=== PATIENT | female | born 1965 | race Caucasian/White ===

== ENCOUNTER 2016-05-26 06:53 | Day surgery (SDC) | payer OTHER ==
[~2016-05-26] VITALS: Ht 157.5 cm; Wt 61.8 kg
[~2016-05-26 06:53] MED LIST: ALBU8.5H5 INH; DOCU-144 PO; HYDR-3498 PO; IBUP800T25 PO; NITR-58 PO; PHEN-537 PO; PRED15SO PO; TRAM50TA2 PO; VALA100057 PO
[2016-05-26] MEDS ORDERED: SINGULAR (08:09)
[2016-05-26 08:12] VITALS: Ht 157.5 cm; Wt 61.8 kg
[2016-05-26 08:58] VITALS: BP 122/60; PULSE 57; RESP 12
[2016-05-26] MEDS ORDERED: FENTAnyl 50 MCG/ML VIAL ONE (09:22)
[2016-05-26] MEDS ORDERED: MIDAZOLAM 1 MG/ML 2 ML INJ ONE ×2 (09:23)
[2016-05-26 10:05] VITALS: BP 99/58; PULSE 56; RESP 18
--- NOTE | 2016-05-26 10:40 | GILP ---
DATE OF PROCEDURE: NAME OF PROCEDURE: Colonoscopy. SURGEON: Radha Reddy MD PREOPERATIVE DIAGNOSIS: Screening colonoscopy. POSTOPERATIVE DIAGNOSES: 1. Colonoscopy all the way to the cecum. 2. Internal hemorrhoids. 3. No colon neoplasm was identified. INDICATION FOR THE PROCEDURE: Ms. Demi Medrano is a 50-year-old female patient who was scheduled fo r screening colonoscopy. The procedure and possible complications were well explained to the patient. The patient understood and consented to the procedure. DESCRIPTION OF PROCEDURE: Under the influence of fentanyl and Versed, the colonoscope was carefully introduced in the rectum and under direct vision it was advanced all the way to the cecum. FINDINGS: The patient had internal hemorrhoids. No colon neoplasm was identified. She tolerated the procedure very well and there was no complication from the procedure. At the end of the procedure, she was awake with stable vital signs and she was discharged home to the care of h er family. IMPRESSION: 1. Colonoscopy all the way to the cecum. 2. Internal hemorrhoids. 3. No colon neoplasm was identified. PLAN: Next screening colonoscopy in 10 years. Dictated By: RADHA RIVERO/THERESA Conf#: [id number] DID#: [id number]
== END 2016-05-26 19:02 | disposition home or self-care (01) ==
LOC: GIL 06:53
PROVIDERS: ATTEND Internal Medicine Gastroenterology
DX: Z12.11 Encounter for screening for malignant neoplasm of colon (principal); K64.8 Other hemorrhoids
CPT/HCPCS: 45378; J2250; J3010; Z7610

== ENCOUNTER 2016-10-30 11:18 | Emergency (ER) | payer OTHER ==
[~2016-10-30] VITALS: Ht 162.6 cm; Wt 60.9 kg
[2016-10-30 11:18] VITALS: Ht 162.6 cm; Wt 60.9 kg
[~2016-10-30 11:18] MED LIST changes: -DOCU-144 PO; -HYDR-3498 PO; -IBUP800T25 PO; -NITR-58 PO; -PHEN-537 PO; -PRED15SO PO; +SINGULAR; -TRAM50TA2 PO
--- NOTE | 2016-10-30 12:13 | ERA ---
ER Documentation Chief Complaint Date/Time DATE: 10/30/16 TIME: 12:12 Chief Complaint Fainted HPI The patient is a 51-year-old female, presenting from the vendor specialist's office because she fainted during the blood draw. She went to see the vendor specialist today because she fainted 2 months ago. She has history of anxiety disorder, she is having a lot of stress in her life at this time. She denies tongue bite , fecal/urinary incontinence. She denies any neck pain, chest pain with exertion/vomiting/diaphoresis. She denies abdominal pain, vomiting, dysuria, diarrhea. She does not smoke nor drink. She is currently taking medication for her shingle that recurred about a week ago Past medical history: Asthma, anxiety Past surgical history: Cholecystectomy ROS All systems reviewed and are negative except as per history of present illness. Medications Home Meds Active Scripts Valacyclovir Hcl* (Valtrex*) 1,000 Mg Tablet, 1000 MG PO TID for 7 Days, TAB Prov:HAYDEE MENDIOLA NP 04/10/15 Albuterol Sulfate* (Albuterol Sulfate* HFA) 8.5 Gm Hfa.aer.ad, 1-2 PUFF INH Q4 Y for SHORTNESS OF BREATH, #1 EA 0 Refills Prov:LATASHA BERG PA-C 02/07/15 Reported Medications [Singular] No Conflict Check 05/26/16 Allergies Allergies: Coded Allergies: No Known Allergy (Unverified , 08/14/14) PMhx/Soc History of Surgery: Yes (CHOLECYSECTOMY) Anesthesia Reaction: No Hx Neurological Disorder: No Hx Respiratory Disorders: Yes (ASTHMA) Hx Cardiac Disorders: No Hx Psychiatric Problems: No Hx Miscellaneous Medical Probl: Yes (HSV) Hx Alcohol Use: No Hx Substance Use: No Hx Tobacco Use: No Physical Exam Vitals Vital Signs Date Time Temp Pulse Resp B/P Pulse Ox O2 Delivery O2 Flow Rate FiO2 10/30/16 15:02 66 16 100/67 100 Room Air 10/30/16 11:18 98.1 61 22 123/62 100 10/30/16 11:18 61 22 123/62 100 Room Air Physical Exam Const: No acute distress. Head: Atraumatic. Eyes: Normal Conjunctiva. ENT: Normal External Ears, Nose and Mouth. Neck: Full range of motion. No meningismus. Resp: Clear to auscultation bilaterally. Cardio: Regular rate and rhythm. Abd: Soft, non distended, normal bowel sounds, non tender. Skin: No petechiae or rashes. Back: No midline or flank tenderness. Ext: No cyanosis, or edema. Neur: Awake and alert. No focal deficit Psych: Normal Mood and Affect. Result Diagram: 10/30/16 1120 10/30/16 1120 Results 24 hrs Laboratory Tests Test 10/30/16 11:20 White Blood Count 7.010^3/ul Red Blood Count 4.8910^6/ul Hemoglobin 15.5g/dl Hematocrit 43.8% Mean Corpuscular Volume 89.6fl Mean Corpuscular Hemoglobin 31.7pg Mean Corpuscular Hemoglobin Concent 35.4g/dl Red Cell Distribution Width 12.0% Platelet Count 45666^3/UL Mean Platelet Volume 10.3fl Neutrophils % 61.5% Lymphocytes % 28.9% Monocytes % 7.4% Eosinophils % 1.7% Basophils % 0.4% Nucleated Red Blood Cells % 0.0/100WBC Neutrophils # 4.310^3/ul Lymphocytes # 2.010^3/ul Monocytes # 0.510^3/ul Eosinophils # 0.110^3/ul Basophils # 0.010^3/ul Nucleated Red Blood Cells # 0.010^3/ul Sodium Level 138mmol/L Potassium Level 4.2mmol/L Chloride Level 107mmol/L Carbon Dioxide Level 25mmol/L Anion Gap 10 Blood Urea Nitrogen 13mg/dl Creatinine 0.72mg/dl Glucose Level 84mg/dl Calcium Level 9.9mg/dl Troponin I < 0.012ng/ml Procedures/[place] [id number] Radiology Main Line: [phone] DIAGNOSTIC IMAGING REPORT Patient: DEEPAK CEE : 1965 Age: 51 Sex: F MR #: [id number] DOS: 10/30/16 1231 Ordering MD: FIDELIA COX MD Location: E/R Room/Bed: PROCEDURE: XR Chest. CLINICAL INDICATION: chest pain, syncope TECHNIQUE: Single frontal view of the chest was obtained COMPARISON: CR CHEST 08/26/2015 FINDINGS: The heart and mediastinum are within normal limits. There is elevation of the right diaphragm. The lungs are clear. There is no pleural effusion or pneumothorax. RPTAT: AA IMPRESSION: No acute disease. .Yogi Díaz MD, MD Date Time Electronically viewed and signed by .Yogi Díaz MD, MD on 10/30/2016 13: 01 .S/ CC: FIDELIA COX MD [place] [id number] Radiology Main Line: [phone] DIAGNOSTIC IMAGING REPORT Patient: DEEPAK CEE : 1965 Age: 51 Sex: F MR #: [id number] DOS: 10/30/16 1231 Ordering MD: FIDELIA COX MD Location: E/R Room/Bed: PROCEDURE: CT Brain without contrast. CLINICAL INDICATION: Patient experiencing syncope. TECHNIQUE: A CT of the brain was performed on a GE [employer] 64-slice CT scanner utilizing axial imaging from the skull base through the vertex without IV contrast. Multiplanar reformatted images were made. Images were reviewed on a PACS workstation. The CTDIvol is 44.88 mGy and the DLP is 630.2 mGycm. One or the following dose reduction techniques were used: -Automated exposure control. -Adjustment of the mA and/or KV according to patient's size. -Use of iterative reconstruction technique. COMPARISON: None FINDINGS: There is no intracranial hemorrhage, mass effect, or midline shift. No extra- axial fluid collection is seen. The ventricles and sulci are normal in size and configuration. The density of the brain is normal, and the dejesus white matter differentiation appears well-preserved. The visualized paranasal sinuses and osseous structures are grossly unremarkable. IMPRESSION: 1. No acute intracranial process identified. RPTAT: AACC Physician Elaina Date Time Electronically viewed and signed by Home Lui Physician on 10/30/2016 13: 54 JH/ CC: FIDELIA COX MD EKG: Read by emergency physician Rate/Rhythm: Normal Sinus Rhythm 61 beats/min QRS, ST, T-waves: No ST elevation, no T inversion Impression: Normal EKG MEDICAL MAKING DECISION: Patient is a 51-year-old female, presenting with acute syncope during blood draw, most likely vasovagal syncope. She remains well in the emergency department and is stable for outpatient follow-up. The differential diagnoses considered include but are not limited to bradyarrhythmia, tachyarrhythmias, aortic outflow obstruction, neurogenic including subarachnoid hemorrhage, orthostatic hypotension and all of its causes , hypoglycemia, dysautonomia, medications. Departure Diagnosis: Primary Impression: Syncope Condition: Good Comments I discussed the findings with the patient. I advised the patient to follow-up with the primary physician in about 1-2 days, sooner if needed and return if any concern. FIDELIA COX MD Oct 30, 2016 12:13
--- NOTE | 2016-10-30 13:01 | RADRPT ---
PROCEDURE: XR Chest. CLINICAL INDICATION: chest pain, syncope TECHNIQUE: Single frontal view of the chest was obtained COMPARISON: CR CHEST 08/26/2015 FINDINGS: The heart and mediastinum are within normal limits. There is elevation of the right diaphragm. The lungs are clear. There is no pleural effusion or pneumothorax. RPTAT: AA IMPRESSION: No acute disease. .Yogi Díaz MD, MD Date Time Electronically viewed and signed by .Yogi Díaz MD, on 10/30/2016 13:01 .S/
[2016-10-30 13:16] LABS: BASOPHILS % 0.4 % (0.0-2.0); EOSINOPHILS # 0.1 10^3/ul (0.0-0.5); EOSINOPHILS % 1.7 % (0.0-7.0); HEMATOCRIT 43.8 % (37.0-47.0); HEMOGLOBIN 15.5 g/dl (12.0-16.0); LYMPHOCYTES % 28.9 % (15.0-51.0); MEAN CORPUSCULAR HEMOGLOBIN 31.7 pg (29.0-33.0); MEAN CORPUSCULAR HGB CONC 35.4 g/dl (32.0-37.0); MEAN CORPUSCULAR VOLUME 89.6 fl (82.0-101.0); MEAN PLATELET VOLUME 10.3 fl (7.4-10.4); MONOCYTE # 0.5 10^3/ul (0.3-0.9); MONOCYTES % 7.4 % (0.0-11.0); NEUTROPHIL # 4.3 10^3/ul (1.6-7.5); NEUTROPHILS % 61.5 % (39.0-77.0); PLATELET COUNT 315 10^3/UL (140-415); RED BLOOD COUNT 4.89 10^6/ul (4.20-5.40)
[2016-10-30 13:37] LABS: ANION GAP 10 (8-16); BLOOD UREA NITROGEN 13 mg/dl (7-20); CALCIUM 9.9 mg/dl (8.4-10.2); CARBON DIOXIDE 25 mmol/L (21-31); CHLORIDE 107 mmol/L (97-110); CREATININE 0.72 mg/dl (0.44-1.00); GLUCOSE 84 mg/dl (70-220); POTASSIUM 4.2 mmol/L (3.5-5.1); SODIUM 138 mmol/L (135-144)
[2016-10-30 13:51] LABS: TROPONIN-I < 0.012 ng/ml (0.00-0.12)
--- NOTE | 2016-10-30 13:54 | RADRPT ---
PROCEDURE: CT Brain without contrast. CLINICAL INDICATION: Patient experiencing syncope. TECHNIQUE: A CT of the brain was performed on a GE [employer] 64-slice CT scanner utilizing axial imaging from the skull base through the vertex without IV contrast. Multiplanar reformatted images were made. Images were reviewed on a PACS workstation. The CTDIvol is 44.88 mGy and the DLP is 630 .2 mGycm. One or the following dose reduction techniques were used: -Automated exposure control. -Adjustment of the mA and/or KV according to patient's size. -Use of iterative reconstruction technique. COMPARISON: None FINDINGS: There is no intracranial hemorrhage, mass effect, or midline shift. No extra-axial fluid collection is seen. The ventricles and sulci are normal in size and configuration. The density of the brain is normal, and the dejesus white matter differentiation appears well-preserved. The visualized paranasal sinuses and osseous structures are grossly unremarkable. IMPRESSION: 1. No acute intracranial process identified. RPTAT: AACC Physician Elaina Date Time Electronically viewed and signed by Physician Elaina on 10/30/2016 13:54 /
[2016-10-30 15:02] VITALS: BP 100/67; PULSE 66; RESP 16
== END 2016-10-30 15:31 | disposition home or self-care (01) ==
LOC: E/R 11:46
DX: R55 Syncope and collapse (principal); J45.909 Unspecified asthma, uncomplicated
CPT/HCPCS: 36415; 70450; 71010; 80048; 84484; 85025; 93005; Z7502; Z7610

== ENCOUNTER 2018-04-04 19:18 | Emergency (ER) | payer OTHER ==
[~2018-04-04] VITALS: Ht 157.5 cm; Wt 65.1 kg
[2018-04-04 19:28] VITALS: Ht 157.5 cm; Wt 65.1 kg
[2018-04-04] MEDS ORDERED: ALBUTEROL 0.083% (NEB) 2.5 MG/3 ML AMP HHN STA (23:45)
--- NOTE | 2018-04-04 23:50 | ERD ---
ER Documentation Chief Complaint Chief Complaint ASTHMA; SOB [id number] HPI This is a 52-year-old female who presents emergency department with complaints of cough and shortness of breath for about a week. Stated that she went to her primary care physician couple of days ago and was prescribed with azithromycin. Stated that she has still 1 dose of azithromycin. LMP: Unknown. . Denies headache, head injury, loss of consciousness, dizziness, neck pain, neck stiffness, throat pain, difficulty swallowing, difficulty breathing lying flat, shoulder pain, chest pain, back pain, abdominal pain, nausea, vomiting, constipation, diarrhea, urinary symptoms, or possibility being , loss of bowel and bladder control, trauma, injury, falls, difficulty walking due to pain, numbness or tingling sensation, calf pain, recent travel, recent major surgery in the last 3 weeks, calf pain, recent long travel, recent exposure to any illness, recent antibiotic use in the last 3 months, fever, chills, seizures. Past medical history: Asthma. Medication: Azithromycin. Surgical history: Social: Denies smoking, use of alcoholic beverages, use of illegal drugs. ROS All systems reviewed and are negative except as per history of present illness. Medications Home Meds Active Scripts Benzonatate* (Tessalon Perle*) 100 Mg Capsule, 100 MG PO Q8H PRN for COUGH, #15 CAP Prov:MITUL TORRSE 04/04/18 Albuterol Sulfate* (Albuterol Sulfate* Neb) 0.083%-3 Ml Neb, 2.5 MG NEB Q4 PRN for SHORTNESS OF BREATH, #30 EA Prov:MITUL TORERS 04/04/18 Albuterol Sulfate* (Ventolin HFA*) 18 Gm Hfa.aer.ad, 2 PUFF INHALATION Q4H PRN for WHEEZING, #1 INHALER Prov:MITUL TORRES 04/04/18 Prednisone* (Prednisone*) 20 Mg Tab, 40 MG PO DAILY for 4 Days, TAB Prov:MITUL TORRES 04/04/18 Amoxicillin/Potassium Clav (Amox-Clav 875-125 mg Tablet) 875-125 mg Tab, 1 TAB PO BID for 10 Days, #20 TAB Prov:MITUL TORRES 04/04/18 Valacyclovir Hcl* (Valtrex*) 1,000 Mg Tablet, 1000 MG PO TID for 7 Days, TAB Prov:HAYDEE MENDIOLA [employer] 04/10/15 Albuterol Sulfate* (Albuterol Sulfate* HFA) 8.5 Gm Hfa.aer.ad, 1-2 PUFF INH Q4 PRN for SHORTNESS OF BREATH, #1 EA 0 Refills Prov:LATASHA BERG PA-C 02/07/15 Reported Medications [Singular] No Conflict Check 05/26/16 Allergies Allergies: Coded Allergies: No Known Allergy (Unverified , 08/14/14) PMhx/Soc History of Surgery: Yes (CHOLECYSECTOMY, hysterectomy) Anesthesia Reaction: No Hx Neurological Disorder: No Hx Respiratory Disorders: Yes (ASTHMA) Hx Cardiac Disorders: Yes (HTN) Hx Psychiatric Problems: No Hx Miscellaneous Medical Probl: Yes (HSV) Hx Alcohol Use: No Hx Substance Use: No Hx Tobacco Use: No Smoking Status: Never smoker Physical Exam Vitals Vital Signs Date Temp Pulse Resp B/P (MAP) Pulse Ox O2 O2 Flow FiO2 Time Delivery Rate 04/05/18 58 20 100/58 100 Room Air 00:50 (72) 04/05/18 83 20 97 21 00:10 04/04/18 98.2 74 18 152/69 99 19:28 (96) Physical Exam Const: No acute distress Head: Atraumatic Eyes: Normal Conjunctiva ENT: Normal External Ears, Nose and Mouth. Bilateral ears: TMs are mildly erythematous. No bleeding. No discharge with no mastoid tenderness. No hearing loss. Nose: There is frontal and maxillary sinus tenderness palpation. Throat: Uvula is in midline and nondisplaced. Tonsils are +1 bilaterally with mild redness but no exudates. Tolerating secretions. Patent airway. No tripoding. Speaks full and clear sentences. Neck: Full range of motion. No meningismus. No nuchal rigidity. No signs of meningeal irritation. Resp: Mild wheezing bilaterally. No accessory muscle use in breathing. Cardio: Regular rate and rhythm, no murmurs Abd: Soft, non tender, non distended. Normal bowel sounds Skin: No petechiae or rashes. Color appears normal for ethnicity. No skin tenting. No signs of dehydration. Back: No midline or flank tenderness Ext: No cyanosis, or edema Neur: Awake and alert. No neurological deficit. Psych: Normal Mood and Affect Results 24 hrs Current Medications Medications Dose Sig/Terrie Start Time Status Last (Trade) Ordered Route PRN Stop Time Admin Dose Reason Admin 10 mg ONCE ONCE 04/05/18 DC 04/05/18 Dexamethasone IM 00:00 00:14 (Decadron) 04/05/18 00:01 Albuterol 5 mg ONCE STAT 04/04/18 DC 04/05/18 (Proventil HHN 23:45 00:09 0.083% (Neb)) 04/04/18 23:47 Ipratropium 0.5 mg ONCE ONCE 04/05/18 DC 04/05/18 [place] [facility] 00:00 00:09 (Atrovent 04/05/18 00:01 0.02% (Neb)) Procedures/MDM Diagnostic tests: Clinical exam. Treatment: Dexamethasone IM. Albuterol and Atrovent breathing treatment. Re-evaluation: Respirations even and unlabored. No retractions noted. Lung sounds are clear to auscultation. Speaks full and clear sentences. Stated that she feels much better at this time and that she is ready to go home. Differential diagnosis I have low suspicion for sepsis, meningitis, peritonsillar abscess, mastoiditis, airway obstruction, status asthmaticus, bronchospasm, severe dehydration. Final diagnosis: Asthma exacerbation. Asthmatic bronchitis. Sinusitis. Prescription: Augmentin. Prednisone. Ventolin pro-air. Albuterol nebulized for admission. Follow-up with PCP in the next 24-48 hours. Come back here in the emergency department for any new symptoms or any worsening symptoms. All questions and concerns were answered. Patient and family members verbalized understanding and agreed with plan of care. Hemodynamically stable on discharge. Departure Diagnosis: Primary Impression: Asthma with acute exacerbation Additional Impressions: Sinusitis Asthmatic bronchitis Condition: Stable Additional Instructions: Follow-up with PCP in the next 24-48 hours. Come back here in the emergency department for any new symptoms or any worsening symptoms. MITUL TORRES Apr 04, 2018 23:50
[2018-04-04] MEDS ORDERED: PRED20TA PO (23:55)
[2018-04-04] MEDS ORDERED: AMOX1TAB10 PO (23:55)
[2018-04-04] MEDS ORDERED: BENZ-6 PO (23:56)
[2018-04-04] MEDS ORDERED: ALBU18HF INHALATION (23:56)
[2018-04-04] MEDS ORDERED: ALBU2.5V3 NEB (23:56)
[2018-04-05] MEDS ORDERED: IPRATROPIUM (NEB) 0.5 MG/2.5 ML AMP HHN ONE
[2018-04-05] MEDS ORDERED: DEXAMETHASONE 10 MG/ML 1 ML INJ IM ONE
[2018-04-05 00:50] VITALS: BP 100/58; PULSE 58; RESP 20
== END 2018-04-05 00:57 | disposition home or self-care (01) ==
LOC: FTE 19:18
DX: J45.901 Unspecified asthma with (acute) exacerbation (principal); J01.90 Acute sinusitis, unspecified
CPT/HCPCS: 94664; 96372; J1100; Z7502; Z7610

== ENCOUNTER → 2018-07-17 | Outpatient (CLI) | payer OTHER ==
[~2018-07-17] MED LIST changes: +ALBU18HF INHALATION; +ALBU2.5V3 NEB; +AMOX1TAB10 PO; +BENZ-6 PO; +PRED20TA PO
--- NOTE | 2018-07-17 18:49 | CONS ---
Assessment/Plan Assessment/Plan Hospital Course (Demo Recall) 52-year-old female presenting with multiyear history of left knee pain. On examination the only area that is tender is her distal IT band over her distal femur and lateral aspect of the knee. Otherwise her knee exam was normal. She does have significant decrease in sensation to her foot and in areas over tibia. This is likely lumbar radiculopathy and it needs to be worked up further as this may be contributing to her knee pain. Her hip x-rays are essentially normal. The calcification found the soft tissues is incidental and not causing any problem. At this time I am recommending aggressive physical therapy for IT band tendinitis as well as lumbar radiculopathy. She should continue with her vitamin D and calcium supplementation. She should start an NSAID regiment with meloxicam which was prescribed. Patient should have further work-up by her primary physician for her lumbar radiculopathy. Follow-up PRN or in 3 months if not better. Consultation Date/Type/Reason Admit Date/Time Date of Consultation: Jul 17, 2018 Reason for Consultation Left knee pain Date/Time of Note DATE: 07/17/18 TIME: 18:37 Hx of Present Illness This is a 52-year-old female with a chief complaint of left knee pain. The pain began years ago. The patients pain is in the lateral aspect of the distal femur and left knee. Pain is not radiating to the lower leg. The pain is rated as a 6/10. Patient persistent numbness and tingling in her left foot. The pain is exacerbated by kneeling and ambulation. There was concern that her pain could have been from her hip and she also brought in hip x-rays. She denies any groin pain. Pain is not relieved by NSAID's. Patient has been taking ibuprofen on a p.r.n. basis as well as using ice. Duration: Years Injury: No Walking tolerance: 3 block Limp: At times after long walks Support: No Swelling: No Crepitation: No Instability: No Stairs: Places both feet on step before proceeding to next Physical Therapy: About to start Injections: No NSAIDs: Ibuprofen as needed Prior surgery: Left knee arthroscopic surgery 2010 for meniscus tear Back pain: No Hip pain: No Risk of AVN : No Patient denies fever, chills, shortness of breath, chest pain, nausea/vomiting, constipation, diarrhea . Positive for numbness and tingling in left lower extremity. Past Medical History Asthma Home Meds Active Scripts Benzonatate* (Tessalon Perle*) 100 Mg Capsule, 100 MG PO Q8H PRN for COUGH, #15 CAP Prov:MITUL TORRES 04/04/18 Albuterol Sulfate* (Albuterol Sulfate* Neb) 0.083%-3 Ml Neb, 2.5 MG NEB Q4 PRN for SHORTNESS OF BREATH, #30 EA Prov:MITUL TORRES 04/04/18 Albuterol Sulfate* (Ventolin HFA*) 18 Gm Hfa.aer.ad, 2 PUFF INHALATION Q4H PRN for WHEEZING, #1 INHALER Prov:MITUL TORRES 04/04/18 Prednisone* (Prednisone*) 20 Mg Tab, 40 MG PO DAILY for 4 Days, TAB Prov:MITUL TORRES 04/04/18 Amoxicillin/Potassium Clav (Amox-Clav 875-125 mg Tablet) 875-125 mg Tab, 1 TAB PO BID for 10 Days, #20 TAB Prov:MITUL TORRES 04/04/18 Valacyclovir Hcl* (Valtrex*) 1,000 Mg Tablet, 1000 MG PO TID for 7 Days, TAB Prov:HAYDEE MENDIOLA NP 04/10/15 Albuterol Sulfate* (Albuterol Sulfate* HFA) 8.5 Gm Hfa.aer.ad, 1-2 PUFF INH Q4 PRN for SHORTNESS OF BREATH, #1 EA 0 Refills Prov:LATASHA BERG PA-C 02/07/15 Reported Medications [Singular] No Conflict Check 05/26/16 Allergies: Coded Allergies: No Known Allergy (Unverified , 08/14/14) Past Surgical History Left knee arthroscopic surgery 2010 Family History Significant Family History: no pertinent family hx Social History Alcohol Use: none Smoking Status: Never smoker Drug Use: none Exam/Review of Systems Exam Vitals Weight: 130 pounds Height: 5 foot Temperature: 98.1 Heart Rate: 59 Blood Pressure: 117/58 Respiratory Rate: 12 Exam General: Alert, oriented x3. No Acute Distress. Heart: Regular rate and rhythm. Lungs: No respiratory distress. No accessory muscle use. Musculoskeletal: Left Knee This is a well developed female who is alert, oriented times three and in no apparent distress. Skin is intact over the left knee as well as the lower extremity with no abrasions, lacerations, or ulcerations. Observation of the patient's gait reveals a non antalgic gait with No thrust or Trendelenburg component. Frontal plane alignment is neutral to slight valgus. There is pain on palpation of lateral joint line and distal femur. Range of motion: 0 extension to approximately 140 degrees of flexion. Collateral ligament testing reveals no instability with varus or valgus stress at 0 and 30 degrees of flexion. Negative Matthew's and negative posterior drawer. Neurovascularly intact with 5/5 EHL/tibialis anterior/gastroc. 2+ deep tendon reflexes. Downgoing Babinski. Sensation grossly decreased to light touch in a sural, saphenous, deep peroneal, superficial peroneal, medial and lateral plantar nerve distribution. Palpable, symmetric dorsalis pedis and posterior tibial pulses in both lower extremities. Hip examination normal. Imaging Imaging 2 views of the left hip from outside facility were personally reviewed. The hip joint is reduced. There are minimal degenerative changes. There is no significant joint space narrowing. No significant osteophytes or subchondral cysts or sclerosis. There is a small area of calcification in the gluteal muscles approximately 14 mm in diameter. 3 views of the left knee from outside facility were personally reviewed these were nonweightbearing. No acute abnormality. No significant degenerative changes. Normal knee x-ray. The patient received a standard set of films today that were personally reviewed. Imaging included a standing bilateral knee AP, PA flexion, merchant views and a dedicated lateral of the affected knee: There is neutral to alignment of the knee. There is no loss of joint space in any compartment(s). There is no osteophyte formation. There is no subchondral sclerosis. There are no subchondral cysts. Degenerative changes are minimal ROEL MORALES MD Jul 17, 2018 18:49
--- NOTE | 2018-07-18 03:40 | RADRPT ---
PROCEDURE: Bilateral knee series CLINICAL INDICATION: Pain TECHNIQUE: AP weightbearing, PA axial weightbearing, lateral weightbearing and sunrise views were o btained of the right and left knees. 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 No acute fractur es or dislocations. No focal bony blastic or lytic lesions. Tiny left suprapatellar knee joint effusi on. No evidence of right knee joint effusion. Soft tissues are unremarkable. IMPRESSION: 1. 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 2. Tiny left suprapatellar knee joint effusion. RPTAT:AAJJ Physician Reg Date Time Electronically viewed and signed by Sarahi Salazar Physician on 07/18/2018 03:40 /
== END | disposition home or self-care (01) ==
LOC: HKI 13:44
PROVIDERS: ATTEND Orthopaedic Surgery Adult Reconstructive Orthopaedic Surgery
DX: M25.562 Pain in left knee (principal)
CPT/HCPCS: 73564; Z7500; G0463